=== PATIENT | female | born 1960 | race Hispanic/Latino ===

== ENCOUNTER 2024-07-29 11:46 | Day surgery (SDC) | payer OTHER ==
[2024-07-29] MEDS ORDERED: PROPOFOL 20 ML ONE (13:03)
[2024-07-29] MEDS ORDERED: fentaNYL PF 100 MCG/2 ML SYRINGE ONE (13:03)
[2024-07-29] MEDS ORDERED: Lidocaine 1% PF 5 ML VIAL ONE (13:04)
[2024-07-29] MEDS ORDERED: CEFAZOLIN 2 GM VIAL ONE (13:53)
[2024-07-29] MEDS ORDERED: Sodium Chloride 0.9% 100 ML ONE (13:53)
[2024-07-29] MEDS ORDERED: Ondansetron PF 4 MG/2 ML Vial ONE (14:23)
[2024-07-29] MEDS ORDERED: Dexamethasone 20 MG/5 ML VIAL ONE (14:23)
[2024-07-29] MEDS ORDERED: Lidocaine 1% (PF) 30 ML VIAL ONE (14:25)
[2024-07-29] MEDS ORDERED: Bupivacaine 0.25% HCL 30 ML VIAL ONE (14:25)
[2024-07-29 14:40] LABS: #Basophils 0.04 10x3/uL (0.0-0.2); %Basophils 0.7 % (0.0-1.0); %Eosinophils 2.1 % (0.0-10.0); %Lymphocytes 26.3 % (21.0-51.0); %Monocytes 9.9 % (0.0-10.0); %Neutrophils 60.7 % (42.0-75.0); Hematocrit 44.8 % (36.0-47.0); Hemoglobin 14.8 g/dL (12.0-16.0); Mean Corpuscular Hemoglobin 31.3 pg (27.0-31.0); Mean Corpuscular Volume 94.7 fL (78.0-98.0); Platelet Count 230 10x3/uL (130-400); RBC Distribution Width 14.4 % (11.5-14.5); Red Blood Cell (RBC) Count 4.73 mill/uL (4.20-5.40)
[2024-07-29] MEDS ORDERED: PHENYLEPHRINE-NS 100 MCG/ML 10 ML SYRINGE ONE (15:02)
[2024-07-29] MEDS ORDERED: HYDROmorphone 2 MG/ML VIAL ONE (15:20)
== END 2024-07-29 17:20 | disposition home or self-care (01) ==
LOC: ERS 11:46 → SDC/OP 13:42
PROVIDERS: ATTEND Surgery Surgery of the Hand
PROC: 0PTM0ZZ Resection of Right Carpal, Open Approach (ICD-10-PCS; principal; 2024-07-29)
DX: S62.001A Unspecified fracture of navicular [scaphoid] bone of right wrist, initial encounter for closed fracture (principal); S63.094A Other dislocation of right wrist and hand, initial encounter; S52.501A Unspecified fracture of the lower end of right radius, initial encounter for closed fracture; S62.601A Fracture of unspecified phalanx of left index finger, initial encounter for closed fracture; S62.021A Displaced fracture of middle third of navicular [scaphoid] bone of right wrist, initial encounter for closed fracture; W19.XXXA Unspecified fall, initial encounter
CPT/HCPCS: 85025; 93005; J0665; J1100; J1170; J2001; J2405; J2704

== ENCOUNTER 2025-06-23 21:26 | Emergency (ER) | payer MEDICARE, OTHER | END 2025-06-24 00:34 | disposition home or self-care (01) | LOC: ERS 21:26 | DX: S01.81XA Laceration without foreign body of other part of head, initial encounter (principal); S09.90XA Unspecified injury of head, initial encounter; I10 Essential (primary) hypertension; W01.190A Fall on same level from slipping, tripping and stumbling with subsequent striking against furniture, initial encounter | CPT/HCPCS: 12011; 70450; 72125; 99283 ==